=== PATIENT | male | born 1980 | race Caucasian/White ===

== ENCOUNTER 2017-05-10 14:17 | Emergency (ER) | payer OTHER ==
[2017-05-10 14:30] VITALS: BP 136/90; PULSE 74; RESP 18; TEMP 98.2
--- NOTE | 2017-05-10 15:05 | ED ---
General Adult HPI - General Chief complaint: Upper Respiratory Infection Stated complaint: Finger pain Time Seen by Provider: 05/10/17 14:34 Source: patient, RN notes reviewed Mode of arrival: ambulatory Limitations: no limitations - History of Present Illness Initial comments: This is a 36-year-old male who presents to the emergency department with chief complaint for concern of full-body infection. Patient states that a week ago he cut his left hand with a wood splitter. He has been taking Bactrim for the past 2 days. He states that for the past week he has been waking up with dizziness and having visual hallucinations, seeing things that are not there. Patient states that he is paranoid that he has a full body infection and that he believes he has MRSA or a staph infection. Patient believes that he is driving himself crazy worrying about infection. Parents are at bedside and state that this is unusual for patient. Patient denies suicidal or homicidal ideation. Denies fever, chills, chest pain, shortness of breath, abdominal pain , nausea or vomiting, constipation or diarrhea, dysuria or hematuria, numbness or tingling, headache or vision changes. - Related Data Home Medications Medication Instructions Recorded Confirmed No Known Home Medications [No 05/10/17 05/10/17 Known Home Medications] Allergies Allergy/AdvReac Type Severity Reaction Status Date / Time No Known Allergies Allergy Verified 05/10/17 14:30 Review of Systems ROS Statement: Those systems with pertinent positive or pertinent negative responses have been documented in the HPI. ROS Other: All systems not noted in ROS Statement are negative. Past Medical History Past Medical History: No Reported History History of Any Multi-Drug Resistant Organisms: None Reported Past Surgical History: No Surgical Hx Reported Past Psychological History: No Psychological Hx Reported Smoking Status: Never smoker Past Alcohol Use History: None Reported Past Drug Use History: None Reported General Exam - General Exam Comments Initial Comments: General: Awake and alert, well-developed; in no apparent distress. Parents are at bedside. HEENT: Head atraumatic, normocephalic. Pupils are equal, round and reactive to light. Extraocular movements intact. Neck: Supple. Normal ROM. Cardiovascular: Regular rate and rhythm. No murmurs, rubs or gallops. Chest symmetrical. Respiratory: Lungs clear to auscultation bilaterally. No wheezes, rales or rhonchi. Normal respiratory effort with no use of accessory muscles. Musculoskeletal: Normal ROM, no tenderness bilateral upper and lower extremities. Ambulating normally. Radial pulses are 2+ equal and palpable bilaterally. Skin: [place], warm and dry without rashes. Well-healing abrasions without evidence of infection on the dorsal left hand. Neurological: Alert and oriented x3. CN II-XII grossly intact. Speech is fluent and answers are appropriate. No focal neuro deficits. Psychiatric: Normal mood and affect. No overt signs of depression or anxiety noted. Limitations: no limitations Course Vital Signs 05/10/17 14:27 Temperature 98.2 F Pulse Rate 74 Respiratory 18 Rate Blood Pressure 136/90 O2 Sat by Pulse 98 Oximetry Medical Decision Making - Medical Decision Making This is a 36-year-old male who presents with complaint for concern of full-body staph infection. Patient states that he sustained an injury to his left hand with a wood splitter one week ago. He has been on Bactrim for the last 2 days. Patient states that he is concerned he has a full-body staph or MRSA infection. Explained to patient that Bactrim covers staph and MRSA of the skin. Wounds on left hand are healing well with no concern for infection. There is no concern for sepsis as patient's vital signs are stable and he has been afebrile. Patient was offered a mental health evaluation for his complaint of hallucinations and he declined. Patient denies suicidal or homicidal ideation. Patient states he would like to be discharged home to rest. Patient will be discharged home. Advised patient to continue and finish his course of Bactrim. He is in agreement and voices understanding. Disposition Clinical Impression: Encounter for wound re-check Disposition: HOME SELF-CARE Condition: Good Instructions: Abrasion (ED) Additional Instructions: Please continue and finish your course of Bactrim as prescribed. Please follow up with primary care provider within 1-2 days. Return to emergency department if symptoms should worsen or any concerns arise. Referrals: None,Stated [Primary Care Provider] - 1-2 days Time of Disposition: 15:07
== END 2017-05-10 15:11 | disposition home or self-care (01) ==
LOC: EC 14:17
DX: M79.642 Pain in left hand (principal); Z48.00 Encounter for change or removal of nonsurgical wound dressing; R42 Dizziness and giddiness; R44.1 Visual hallucinations
CPT/HCPCS: 99283